=== PATIENT | female | born 1960 | race Caucasian/White ===

== ENCOUNTER 2018-10-05 15:44 | Emergency (ER) | payer OTHER ==
[~2018-10-05] VITALS: Ht 162.6 cm; Wt 81.6 kg
[2018-10-06] MEDS ORDERED: ONDANSETRON ODT8 MG PO (14:52)
[2018-10-06] MEDS ORDERED: PROTONIX40 MG PO (14:52)
== END 2018-10-06 14:45 | disposition home or self-care (01) ==
LOC: ER 15:44
DX: R11.2 Nausea with vomiting, unspecified (principal)